=== PATIENT | female | born 1975 | race Caucasian/White ===

== ENCOUNTER → 2025-10-15 07:42 | Outpatient (REF) | payer OTHER, SELFPAY ==
[2025-10-15 08:52] LABS: Glycohemoglobin (HgbA1c) 8.6 % (4.0-5.9)
[2025-10-15 09:32] LABS: ALT (SGPT) 27 U/L (0-35); AST (SGOT) 44 U/L (14-36); Albumin 4.5 g/dl (3.5-5.0); Alkaline Phosphatase 77 U/L (38-126); Blood Urea Nitrogen 13 mg/dl (7-17); Calcium 9.5 mg/dl (8.4-10.2); Carbon Dioxide 26 mmol/L (22-30); Chloride 103 mmol/L (98-107); Glucose 175 mg/dl (70-99); HDL Cholesterol 27 mg/dl; LDL Cholesterol, Calculated 129 mg/dl; Potassium 4.3 mmol/L (3.5-5.1); Sodium 137 mmol/L (135-145); Total Protein 7.1 g/dl (6.3-8.2); Very Low Density Lipoprotein 47 mg/dl (0-30); eGFR > 60.00
[2025-10-15 09:52] LABS: Cortisol, Random 9.3 ug/dl; TSH 1.46 uIU/ml (0.47-4.68)
[2025-10-15 10:49] LABS: Microalbumin, Random Urine 6.8 mg/dl (0.6-1.7)
== END ==
LOC: REG 07:42
PROVIDERS: ATTENDING PHYSICIAN Nurse Practitioner Family; FAMILY PHYSICIAN Family Medicine
DX: C71.9 Malignant neoplasm of brain, unspecified (principal); E23.2 Diabetes insipidus; E11.65 Type 2 diabetes mellitus with hyperglycemia
CPT/HCPCS: 36415; 80053; 80061; 82024; 82043; 82533; 82570; 83036; 84144; 84439; 84443